=== PATIENT | male | born 1970 | race Caucasian/White ===

== ENCOUNTER 2025-10-09 06:22 | Day surgery (SDC) | payer BC, SELFPAY | END 2025-10-09 14:20 | disposition home or self-care (01) | LOC: GI 06:22 | PROVIDERS: ATTENDING PHYSICIAN Internal Medicine | DX: R13.10 Dysphagia, unspecified (principal); K22.2 Esophageal obstruction; K22.89 Other specified disease of esophagus; K20.0 Eosinophilic esophagitis; D13.0 Benign neoplasm of esophagus; K29.50 Unspecified chronic gastritis without bleeding | CPT/HCPCS: 43248; 43239; 88305; 88342 ==